=== PATIENT | male | born 1990 | race Two or more races ===

== ENCOUNTER → 2018-07-10 | Emergency (ER) | payer OTHER ==
[~2018-07-10] VITALS: Ht 175.3 cm; Wt 61.7 kg
[~2018-07-10] MED LIST: DOLOGESIC 500-1 EACH PO
== END | disposition home or self-care (01) ==
LOC: ER 23:00
DX: R53.81 Other malaise (principal)

== ENCOUNTER 2020-09-17 07:25 | Outpatient (CLI) | payer OTHER | END 2020-09-17 07:40 | disposition home or self-care (01) | LOC: RAD 07:25 | PROVIDERS: ATTEND Specialist | DX: R06.02 Shortness of breath (principal); J18.8 Other pneumonia, unspecified organism ==